=== PATIENT | female | born 1985 | race American Indian/Alaskan Native ===

== ENCOUNTER 2016-09-07 05:39 | Outpatient (CLI) | payer SELFPAY | END 2016-09-07 07:50 | disposition home or self-care (01) | LOC: TRG 05:39 | PROVIDERS: ATTEND Obstetrics & Gynecology | DX: O26.892 Other specified pregnancy related conditions, second trimester (principal); F41.0 Panic disorder [episodic paroxysmal anxiety]; O77.9 Labor and delivery complicated by fetal stress, unspecified; Z3A.24 24 weeks gestation of pregnancy ==

== ENCOUNTER 2016-09-07 07:53 | Emergency (ER) | payer SELFPAY ==
[2016-09-07 08:31] LABS: Hematocrit 32.7 % (30.3-42.9); Mean Corpuscular HGB Conc 34 % (30-34); Mean Corpuscular Hemoglobin 30 pg (28-32); Mean Corpuscular Volume 88 fl (79-97); Platelet Count 254 K/mm3 (140-440); Red Blood Count 3.72 M/mm3 (3.65-5.03); Red Cell Distribution Width 13.5 % (13.2-15.2); White Blood Count 7.8 K/mm3 (4.5-11.0)
[2016-09-07 09:08] LABS: BUN/Creatinine Ratio 6.66; Blood Urea Nitrogen 4 mg/dL (7-17); Calcium 8.7 mg/dL (8.4-10.2); Carbon Dioxide 21 mmol/L (22-30); Glucose 88 mg/dL (65-100)
[2016-09-07 09:09] LABS: Anion Gap 18 mmol/L; Chloride 103.1 mmol/L (98-107); Potassium 4.2 mmol/L (3.6-5.0); Sodium 138 mmol/L (137-145)
[2016-09-07 16:39] LABS: Bilirubin,Urine NEG (Negative); Blood,Urine NEG (Negative); Ketones,Urine 80 mg/dL (Negative); Leukocyte Esterase,Urine SM (Negative); Mucus,Urine 1+ /HPF; Nitrite,Urine NEG (Negative); Protein,Urine <15 mg/dL mg/dL (Negative); Urobilinogen,Urine < 2.0 mg/dL (<2.0)
--- NOTE | 2016-09-07 16:58 | Emergency Department Report ---
ED Anxiety HPI - General Chief Complaint: Anxiety Stated Complaint: JEB/PANIC ATTACK/SLEEPLESSNESS Time Seen by Provider: 09/07/16 15:33 Source: patient Mode of arrival: Ambulatory - History of Present Illness Initial Comments: 31F presents with complaint of 2 weeks of insomnia, and inability to sleep. Patient states she recently moved from [facility] to the . States that she has had difficulty sleeping, denies any chest pain no shortness of breath no nausea no vomiting no fever no chills no palpitations. Denies any pleuritic chest pain. States that she was in labor and delivery unit last night for monitoring and was referred to the ED for anxiety workup. She is awake alert and oriented 3 not in acute distress accompanied by . Patient denies any alcohol or drug use. States that he has no suicidal or homicidal ideation, no hallucinations. States that she was recently prescribed buspirone and zoloft for insomnia which she took for 1 night then discontinued, states it gave her a headache. States she has been taking Benadryl with minimal resolution of her insomnia. He shouldn't showing me her prescriptions and her discharge paperwork from L&D unit. Patient accompanied by MD Complaint: anxiety Onset/Timin -: week(s) Place: home Previous History of Same: Yes Severity: moderate Quality: constant Provoking factors: emotional stress, other (recent move from [facility] to the [facility] ) - Related Data Home Medications: Previous Rx's Medication Instructions Recorded Last Taken Type HYDROcodone/APAP 5-325 [[place] 1 each PO Q6H PRN #30 tablet 07/23/15 Unknown Rx 5-325 mg TAB] Ibuprofen [Motrin 600 MG tab] 600 mg PO Q6H #30 tablet 07/23/15 Unknown Rx Acetaminophen [Acetaminophen TAB] 500 mg PO Q6HR PRN #30 tablet 09/07/16 Unknown Rx Multivitamin with Iron [Tab-A-Johnathan 1 each PO DAILY #30 tablet 09/07/16 Unknown Rx with Iron] Nitrofurantoin [place]/M-Cryst 100 mg PO Q12HR #14 capsule 09/07/16 Unknown Rx [Macrobid CAP] Allergies/Adverse Reactions: Allergies Allergy/AdvReac Type Severity Reaction Status Date / Time No Known Allergies Allergy Verified 05/22/15 20:31 ED Review of Systems ROS: Stated complaint: JEB/PANIC ATTACK/SLEEPLESSNESS Other details as noted in HPI Constitutional: denies: chills, fever Eyes: denies: eye pain, eye discharge, vision change ENT: denies: ear pain, throat pain Respiratory: denies: cough, shortness of breath, wheezing Cardiovascular: denies: chest pain, palpitations Endocrine: no symptoms reported Gastrointestinal: denies: abdominal pain, nausea, diarrhea Genitourinary: denies: urgency, dysuria, discharge Musculoskeletal: denies: back pain, joint swelling, arthralgia Skin: denies: rash, lesions Neurological: other. denies: headache, weakness, paresthesias Psychiatric: denies: anxiety, depression Hematological/Lymphatic: denies: easy bleeding, easy bruising ED Past Medical Hx - Past Medical History Previous Medical History?: No Hx Hypertension: No Hx Congestive Heart Failure: No Hx Diabetes: No Hx Deep Vein Thrombosis: No Hx Renal Disease: No Hx Sickle Cell Disease: No Hx Seizures: No Hx Asthma: No Hx COPD: No Hx HIV: No - Surgical History Past Surgical History?: No - Social History Smoking Status: Never Smoker Substance Use Type: Alcohol - Medications Home Medications: Home Medications Medication Instructions Recorded Confirmed Last Taken Type HYDROcodone/APAP 5-325 [[place] 1 each PO Q6H PRN #30 tablet 07/23/15 Unknown Rx 5-325 mg TAB] Ibuprofen [Motrin 600 MG tab] 600 mg PO Q6H #30 tablet 07/23/15 Unknown Rx Acetaminophen [Acetaminophen TAB] 500 mg PO Q6HR PRN #30 tablet 09/07/16 Unknown Rx Multivitamin with Iron [Tab-A-Johnathan 1 each PO DAILY #30 tablet 09/07/16 Unknown Rx with Iron] Nitrofurantoin [place]/M-Cryst 100 mg PO Q12HR #14 capsule 09/07/16 Unknown Rx [Macrobid CAP] ED Physical Exam - General Limitations: No Limitations General appearance: alert, in no apparent distress - Head Head exam: Present: atraumatic, normocephalic - Eye Eye exam: Present: normal appearance, PERRL, EOMI - ENT ENT exam: Present: mucous membranes moist - Neck Neck exam: Present: normal inspection - Respiratory Respiratory exam: Present: normal lung sounds bilaterally. Absent: respiratory distress - Cardiovascular Cardiovascular Exam: Present: regular rate, normal rhythm. Absent: systolic murmur, diastolic murmur, rubs, gallop - GI/Abdominal GI/Abdominal exam: Present: soft, normal bowel sounds - Extremities Exam Extremities exam: Present: normal inspection, full ROM - Back Exam Back exam: Present: normal inspection - Neurological Exam Neurological exam: Present: alert, oriented X3, CN II-XII intact, normal gait - Psychiatric Psychiatric exam: Present: normal affect, normal mood - Skin Skin exam: Present: warm, dry, intact, normal color. Absent: rash ED Course Vital Signs 09/07/16 09/07/16 08:04 17:20 Temperature 98.5 F Pulse Rate 77 82 Respiratory 18 Rate Blood Pressure 110/72 Blood Pressure 110/83 [Right] O2 Sat by Pulse 100 98 Oximetry ED Medical Decision Making - Lab Data Result diagrams: 09/07/16 08:23 09/07/16 08:23 - Medical Decision Making A/P: Insomnia, anxiety 1-patient already on Zoloft buspirone and Benadryl 2-I recommended to the patient that she can use any one of these medicines for her insomnia and she should follow up with primary care doctor which I will refer her to 3-WBCs in urine will treat empirically with Macrobid 4-patient's clinical signs and symptoms not consistent any delirium, no signs of psychosis, patient does not have any chest pain shortness of breath fever or chills 5-I discussed case with Dr. Harris, he stated that patient was in L&D last night for monitoring which is normal, patient discharged 6- start patient empirically on ferrous sulfate for iron supplementation and vitamins. 7- mental health counselor Isadora came and spoke to patient for outpatient psychiatric resources for depression and anxiety. Patient has an at home and is currently , she may be experiencing anxiety related to this work load related to her family and possibly may even have peripartum depression. Patient is not psychotic patient has no suicidal or homicidal ideation no hallucinations. Critical care attestation.: If time is entered above; I have spent that time in minutes in the direct care of this critically ill patient, excluding procedure time. ED Disposition Clinical Impression: Insomnia Qualifiers: Insomnia type: other insomnia Qualified Code(s): G47.09 - Other insomnia Disposition: DISCHARGED TO HOME OR SELFCARE Is pt being admited?: No Does the pt Need Aspirin: No Condition: Stable Instructions: Urinary Tract Infection in Women (ED), Insomnia (ED) Prescriptions: Acetaminophen [Acetaminophen TAB] 500 mg PO Q6HR PRN #30 tablet PRN Reason: Headache Multivitamin with Iron [Tab-A-Johnathan with Iron] 1 each PO DAILY #30 tablet Nitrofurantoin [place]/M-Cryst [Macrobid CAP] 100 mg PO Q12HR #14 capsule Referrals: PRIMARY CARE, [Primary Care Provider] - 3-5 Days Forms: Accompanied Note, Work/School Release Form(ED)
[2016-09-07 17:27] VITALS: BP 110/83
== END 2016-09-07 17:27 | disposition home or self-care (01) ==
LOC: ED 07:53
DX: G47.09 Other insomnia (principal); F41.9 Anxiety disorder, unspecified
CPT/HCPCS: 36415; 80048; 81001; 81025; 85027; 87086; 93005; 93010; 99283

== ENCOUNTER 2016-12-09 13:44 | Outpatient (CLI) | payer SELFPAY ==
[2016-12-09 14:33] VITALS: BP 119/81
--- NOTE | 2016-12-10 09:53 | Ultrasound Report ---
BIOPHYSICAL PROFILE: 2 - breathing movements 2 - movements 2 - posture and tone 2 - Qualitative amniotic fluid volume 8 - TOTAL SCORE OF POSSIBLE 8 Heart Rate (bpm) 153 Amniotic Fluid: NINO = 11.4 cm Heart Rate: 153 BPM Cervical length: cm (Normal > 3 cm)
== END 2016-12-09 16:20 | disposition home or self-care (01) ==
LOC: TRG 13:44
PROVIDERS: ATTEND Obstetrics & Gynecology
DX: O47.1 False labor at or after 37 completed weeks of gestation (principal); Z3A.39 39 weeks gestation of pregnancy
CPT/HCPCS: 59025; 76815; 76819